=== PATIENT | male | born 1980 | race American Indian/Alaskan Native ===

== ENCOUNTER 2016-10-03 19:59 | Emergency (ER) | payer SELFPAY ==
--- NOTE | 2016-10-03 22:05 | XRay Report ---
FINAL REPORT EXAM: XR SHOULDER 2+V LT HISTORY: shoulder pain TECHNIQUE: Left shoulder three views 3 images PRIORS: None. FINDINGS: Visualized portion of the left lung appears clear. Bone mineralization appears within normal limits. No acute fracture or subluxation is identified. No gross abnormality is seen in the visualized soft tissues. IMPRESSION: 1. No acute osseous abnormality is identified.
--- NOTE | 2016-10-03 22:26 | Emergency Department Report ---
Upper Extremity - HPI Chief Complaint: Extremity Injury, Upper Stated Complaint: LT SHOULDER PAIN Time Seen by Provider: 10/03/16 21:24 Upper Extremity: Left Shoulder (left shoulder pain for 2 weeks without any injury.) Occurred When: >5 Days (2 weeks) Mechanism: Unsure Severity: severe (8 out of 10) Symptoms: Yes Pain with Movement (reports pain with movement to left shoulder), Yes Limited Range of Movement (reports limited range of motion to his left shoulder), No Deformity, No Numbness, No Weakness, No Swelling, No Bruising/ Ecchymosis, No Laceration or Abrasion Other History: Patient he reported that he's been having left shoulder pain for 2 weeks. Denies any radiation. Reports pain is it a the 10/10 and cramping and aching. He said that when he moves his shoulder the pain is worse. He said he use heating pad and ibuprofen with no relief. Patient denies any trauma. 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 Denies any chest pain or shortness of breath. Patient denies any medical problems he has a history of left hand surgery in 2001. Denies any redness or swelling to left shoulder. Denies any fever or chills. ED Review of Systems ROS: Stated complaint: LT SHOULDER PAIN Other details as noted in HPI Comment: All other systems reviewed and negative Constitutional: denies: chills, fever Respiratory: no symptoms reported Cardiovascular: denies: chest pain, palpitations, edema, syncope Gastrointestinal: denies: abdominal pain, nausea, vomiting Musculoskeletal: arthralgia. denies: back pain, joint swelling, myalgia Skin: denies: rash Neurological: denies: headache, weakness, numbness, paresthesias, confusion, abnormal gait, vertigo ED Past Medical Hx - Past Medical History Previous Medical History?: No - Surgical History Past Surgical History?: Yes Additional Surgical History: left hand surgery 2001 - Family History Family history: no significant - Social History Smoking Status: Never Smoker Substance Use Type: None Other Social History: Patient is single - Medications Home Medications: Home Medications Medication Instructions Recorded Confirmed Last Taken Type Cyclobenzaprine [Flexeril] 10 mg PO TID PRN #12 tablet 10/04/16 Unknown Rx traMADol [Ultram] 50 mg PO Q6HR PRN #12 tablet 10/04/16 Unknown Rx Upper Extremity Exam - Exam General: Vital signs noted. No distress. Alert and acting appropriately. This is a 36-year-old male well-nourished well-developed in no acute distress. Head and Torso: Yes Back Tenderness (no paraspinal or vertebral tenderness. Full range of motion. Normal inspection), No HEENT Abnormality (normal examination), No Neck Tenderness (supple, nontender to palpate. No C-spine tenderness and full range of motion), No Chest/Lungs Abnormality (clear to auscultation bilaterally, no rhonchi wheezes or rales), No Abdominal Tenderness (nontender to palpate in all quadrants, normal bowel sounds) Shoulder Exam: Yes Normal Range of Motion in Shoulder (patient with full range of motion both shoulders but he said it hurts when he places left arm over his head.), No Shoulder Tenderness (nontender to palpate. No crepitus. No erythema or joint deformity), No Clavicle Tenderness, No Shoulder Deformity, No AC Joint Tenderness (or deformity) Arm Exam: No Arm/Humerus Tenderness, No Arm Deformity Elbow: Yes Normal Range of Motion in Elbow, No Elbow Tenderness, No Elbow Deformity Forearm: No Forearm Tenderness, No Forearm Deformity, No Pain with Pronation, No Pain with Supination Wrist: Yes Normal ROM in Wrist, No Wrist Tenderness, No Wrist Deformity, No Snuffbox Tenderness, No Pain with Axial Thumb Compression Hand: Yes Normal ROM in Digit(s), No Hand Tenderness, No Hand Deformity, No Digit Tenderness, No Digit(s) Deformity, No Tendon Dysfunction CMS Exam: Yes Normal Distal Pulses, Yes Normal Capillary Refill, Yes Normal Distal Sensation, No Broken Skin ED Course Vital Signs 10/03/16 21:04 Temperature 98.5 F Pulse Rate 60 Respiratory 16 Rate Blood Pressure 116/70 O2 Sat by Pulse 99 Oximetry - Reevaluation(s) Reevaluation #1: 10/04/16 00:16 Patient received Windham 06/3251 tablets in the emergency room for pain. ED Medical Decision Making - Radiology Data Radiology results: report reviewed X-ray of left shoulder reveals no bony abnormalities. No joint effusion. - Medical Decision Making ED course: Patient here reports left shoulder pain that has been ongoing 2 weeks. 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 She was given Windham 5/325 2 tablets in the emergency room. I discussed with him that his x-ray was negative for any acute bony abnormalities. I discussed the patient that he will need to follow up with orthopedic because he might have rotator cuff injury and this will require MRI. Patient voiced understanding of diagnosis and treatment plan. Diagnostic/laboratory: xray left shoulder reveal no acute bony abnormality 1: Arthralgia left shoulder Pt given prescription for tramadol and Flexeril and to follow-up with Dr. ray' s orthopedic doctor for further evaluation and treatment of shoulder pain Critical care attestation.: If time is entered above; I have spent that time in minutes in the direct care of this critically ill patient, excluding procedure time. ED Disposition Clinical Impression: Arthralgia of left shoulder region Disposition: - TO HOME OR SELFCARE Is pt being admited?: No Does the pt Need Aspirin: No Condition: Stable Instructions: Arthralgia (ED) Additional Instructions: Rest shoulder for 48 hours Follow-up with orthopedic doctor if he still has shoulder pain in 3-[address] or operate heavy machinery while taking Ultram and Flexeril as these medication causes drowsiness Prescriptions: Cyclobenzaprine [Flexeril] 10 mg PO TID PRN #12 tablet PRN Reason: Muscle Spasm traMADol [Ultram] 50 mg PO Q6HR PRN #12 tablet PRN Reason: Pain Referrals: BETH SANCHEZ MD [Staff Physician] - 3-5 Days Forms: Work/School Release Form(ED)
[2016-10-04] MEDS ORDERED: NORCO 5/325 PO ONE (00:11)
[2016-10-04 00:32] VITALS: BP 111/63
== END 2016-10-04 00:32 | disposition home or self-care (01) ==
LOC: ED 19:59
DX: M25.512 Pain in left shoulder (principal)
CPT/HCPCS: 99283